=== PATIENT | male | born 2005 | race Caucasian/White ===

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

== ENCOUNTER 2023-08-31 02:57 | Emergency (ER) | payer BC ==
[2023-08-31 03:31] VITALS: BP 114/65; PULSE 83
[2023-08-31 05:36] LABS: CORONAVIRUS COVID-19 NAA NEGATIVE (NEGATIVE); INFLUENZA A NAA NEGATIVE (NEGATIVE)
[2023-08-31] MEDS ORDERED: Amoxicillin 500 MG Cap PO ONE (05:49)
[2023-08-31] MEDS ORDERED: Albuterol/Ipratropium 3.0-0.5 MG/3 ML Neb Soln NEB ONE (05:50)
== END 2023-08-31 06:25 | disposition home or self-care (01) ==
LOC: JD.ED 02:57
DX: J02.0 Streptococcal pharyngitis (principal); J45.909 Unspecified asthma, uncomplicated; Z88.5 Allergy status to narcotic agent
CPT/HCPCS: 0240U; 71045; 87651; 94640; 99285; A9270; J7620-GY